=== PATIENT | female | born 1980 | race Caucasian/White ===

== ENCOUNTER 2020-11-16 16:43 | Emergency (ER) | payer OTHER ==
[2020-11-16] MEDS ORDERED: diphenhydrAMINE 50 MG/ML SDV IVPUSH ONE (17:17)
[2020-11-16] MEDS ORDERED: Metoclopramide 10 MG/2 ML SDV IVPUSH ONE (17:17)
[2020-11-16] MEDS ORDERED: Sodium Chloride 0.9% 10 ML Syringe FLUSH PRN (17:17)
[2020-11-16] MEDS ORDERED: Lactated Ringers 1,000 ML IV ONE (17:17)
[2020-11-16] MEDS ORDERED: Ketorolac 30 MG/ML SDV IVPUSH ONE (17:17)
--- NOTE | 2020-11-16 17:22 | EDM.PDOC ---
ED HPI GENERAL MEDICAL PROBLEM - General Chief Complaint: Neuro Symptoms/Deficits Stated Complaint: VERTIGO AND HEAD HURTING Time Seen by Provider: 11/16/20 17:10 Source of Information: Reports: Patient History Limitations: Reports: No Limitations - History of Present Illness INITIAL COMMENTS - FREE TEXT/NARRATIVE: Patient comes emergency department today with complaints of a headache and dizziness. Although the primary complaints is vertigo the patient denies any vertigo type symptoms. She relates that today she has been having waxing and waning episodes that last about 1 minute where her head is lightheaded and dizzy and she has a pounding sensation throughout her head. She gets some nausea with this. She is also photophobic at the same time. She has had no recent falls trauma or head injury. No visual acuity changes. No diplopia. No chest pain or shortness of breath or difficulty breathing. No palpitations weakness dizziness lightheadedness. She has been able to ambulate without difficulty. She has no paresthesias of the upper or lower extremities. No change in the functionality of her upper or lower extremities. These episodes last for about a minute and come and go multiple times throughout the day. She has had no fever or chills. No abdominal pain. She has had some nausea without vomiting. No hematuria dysuria or urinary frequency. No black or tarry stools. No Covid exposure no Covid symptoms. Headache Pain Score (Numeric/FACES): 5 - Related Data Allergies Allergy/AdvReac Type Severity Reaction Status Date / Time ibuprofen Allergy Swollen Verified 11/16/20 17:07 Tongue metoclopramide [From Reglan] Allergy Excitabilit Verified 11/16/20 17:07 y morphine Allergy Rash Verified 11/16/20 17:07 Home Meds: Home Meds Escitalopram [Lexapro] 10 mg PO DAILY 11/16/20 [History] Glycopyrrolate [Robinul] 1 mg PO TID 11/16/20 [History] ED ROS GENERAL - Review of Systems Review Of Systems: Comprehensive ROS is negative, except as noted in HPI. - Physical Exam Exam: See Below Exam Limited By: No Limitations General Appearance: Alert, WD/WN, No Apparent Distress Eye Exam: Bilateral Eye: EOMI, PERRL Ears: Normal External Exam, Normal Canal, Normal TMs Nose: Normal Inspection, Normal Mucosa, No Blood Throat/Mouth: Normal Inspection, Normal Lips Head Exam: Atraumatic, Normocephalic Neck: Normal Inspection, Supple, Non-Tender, Full Range of Motion Respiratory/Chest: No Respiratory Distress, Lungs Clear, Normal Breath Sounds, Chest Non-Tender Cardiovascular: Normal Peripheral Pulses, Regular Rate, Rhythm GI/Abdominal: Normal Bowel Sounds, Soft, Non-Tender (Female) Exam: Deferred Rectal (Female) Exam: Deferred Neuro Exam (Abbreviated): Alert, Oriented, CN II-XII Intact, Normal Cognition, Normal Gait, Normal Reflexes, No Motor/Sensory Deficits, Other (Negative [place]. No pronator drift. Clear articulate speech. Negative neuro exam. NIH 0.) Back Exam: Normal Inspection Extremities: Normal Inspection, Normal Range of Motion, Normal Capillary Refill Psychiatric: Normal Affect, Normal Mood Skin Exam: Warm, Dry, Intact, Normal Color, No Rash Course - Vital Signs Last Recorded V/S: Last Vital Signs Temp 98.1 F 11/16/20 16:50 Pulse 96 11/16/20 16:50 Resp 16 11/16/20 16:50 BP 155/86 H 11/16/20 16:50 Pulse Ox 96 11/16/20 16:50 - Orders/Labs/Meds Orders: Active Orders 24 hr Category Date Time Status Sodium Chloride 0.9% [Saline Flush] Med 11/16/20 17:17 Active 10 ml FLUSH ASDIRECTED PRN Peripheral IV Insertion Adult [OM.PC] Stat Oth 11/16/20 17:17 Ordered Medication Orders Sodium Chloride (Saline Flush) 10 ml FLUSH ASDIRECTED PRN PRN Reason: Keep Vein Open Labs: Laboratory Tests 11/16/20 11/16/20 11/16/20 Range/Units 17:30 17:30 17:30 WBC 8.9 (4.0-10.0) x10^3/uL RBC 4.30 (4.00-5.50) x10^6/uL Hgb 13.6 (12.0-16.0) g/dL Hct 39.4 (33.0-47.0) % MCV 91.6 (78.0-93.0) fL MCH 31.6 (26.0-32.0) pg MCHC 34.5 (32.0-36.0) g/dL RDW Coeff of [place] 12.7 (10.0-15.0) % Plt Count 292 (130-400) x10^3/uL Neut % (Auto) 72.0 (50.0-80.0) % Lymph % (Auto) 19.4 L (25.0-50.0) % [place] % (Auto) 7.2 (2.0-11.0) % Eos % (Auto) 1.1 (0.0-4.0) % Baso % (Auto) 0.3 (0.2-1.2) % Sodium 138 (136-145) mmol/L Potassium 3.8 (3.5-5.1) mmol/L Chloride 102 (98-107) mmol/L Carbon Dioxide 28 (21-32) mmol/L Anion Gap 11.8 (10-20) mmol/L BUN 12 (7-18) mg/dL Creatinine 0.8 (0.55-1.02) mg/dL Est Cr Clr Drug Dosing TNP Estimated GFR (MDRD) > 60 Glucose 97 (74-106) mg/dL Calcium 8.9 (8.5-10.1) mg/dL Corrected Calcium 9.14 (8.5-10.1) mg/dL Total Bilirubin 0.8 (0.2-1.0) mg/dL AST 14 L (15-37) U/L ALT 25 (14-59) U/L Alkaline Phosphatase 67 (46-116) U/L Total Protein 7.7 (6.4-8.2) g/dL Albumin 3.7 (3.4-5.0) g/dL Globulin 4.0 Albumin/Globulin Ratio 0.93 Urine Color Yellow (YELLOW) Urine Appearance Clear (CLEAR) Urine pH 7.0 (5.0-8.0) Ur Specific [place] 1.015 Urine Protein Negative (NEGATIVE) mg/dL Urine Glucose (UA) Negative (NEGATIVE) mg/dL Urine Ketones Negative (NEGATIVE) mg/dL Urine Occult Blood Negative (NEGATIVE) Urine Nitrite Negative (NEGATIVE) Urine Bilirubin Negative (NEGATIVE) Urine Urobilinogen 0.2 (0.2) EU/dL Ur Leukocyte Esterase Negative (NEGATIVE) Meds: Medications Generic Name Dose Route Start Last Admin Trade Name Freq PRN Reason Stop Dose Admin Sodium Chloride 10 ml 11/16/20 17:17 Saline Flush FLUSH ASDIRECTED PRN Keep Vein Open Discontinued Medications Generic Name Dose Route Start Last Admin Trade Name Elise PRN Reason Stop Dose Admin Diphenhydramine HCl 25 mg 11/16/20 17:17 11/16/20 17:51 Benadryl IVPUSH 11/16/20 17:18 25 mg ONETIME ONE Administration Lactated Ringer's 1,000 mls @ 999 mls/hr 11/16/20 17:17 11/16/20 17:52 Ringers, Lactated IV 11/16/20 18:17 999 mls/hr ONETIME ONE Administration Ketorolac Tromethamine 30 mg 11/16/20 17:17 11/16/20 17:52 Toradol IVPUSH 11/16/20 17:18 30 mg ONETIME ONE Administration Metoclopramide HCl 10 mg 11/16/20 17:17 Reglan IVPUSH 11/16/20 17:18 ONETIME ONE Prochlorperazine Edisylate 5 mg 11/16/20 17:46 11/16/20 17:52 Compazine IV 11/16/20 17:47 5 mg ONETIME ONE Administration - Re-Assessments/Exams Free Text/Narrative Re-Assessment/Exam: 11/16/20 17:20 I explained to the patient I do not see any signs of a stroke or concerns for that especially with the waxing and waning symptoms that she is having this is most likely a complex type migraine. No sensation of vertigo or nystagmus. IV of LR 1 L wide open. Benadryl 25 mg IV push. Ketorolac 30 mg IV push. Compazine 5mg IVP allergic to Reglan. 11/16/20 18:20 CBC, CMP and urinalysis is unremarkable. 11/16/20 18:51 After the above therapy the patient is almost completely asymptomatic. She has a little bit of residual headache in the very lower occiput region but the dizziness and the other symptoms have completely resolved. Repeat neurological evaluation is unremarkable. We will discharge her home with instructions for migraine. Anything new or worse she is to recheck. She is understanding this questions are answered Departure - Departure Time of Disposition: 18:51 Disposition: Home, Self-Care 01 Clinical Impression: Migraine Qualifiers: Migraine type: unspecified Status migrainosus presence: without status migrainosus Intractability: not intractable Qualified Code(s): G43.909 - Migr roshan, unspecified, not intractable, without status migrainosus - Discharge Information Instructions: Migraine Headache, [id number] Referrals: Rosa Maria Tuttle MD [Primary Care Provider] - Forms: ED Department Discharge Additional Instructions: Home rest tonight. Decrease stimulation to the brain especially lights sounds and backlit tablets such as a phone or tablet. Lots of fluids. Tylenol as needed for headache. Return to the ED if new or worsening symptoms. Follow up with PCP in the next 4-6 days if not improving sooner if worse. Sepsis Event Note (ED) - Focused Exam Vital Signs: Vital Signs Temp Pulse Resp BP Pulse Ox 11/16/20 16:50 98.1 F 96 16 155/86 H 96 - My Orders Last 24 Hours: My Active Orders 11/16/20 17:17 Sodium Chloride 0.9% [Saline Flush] 10 ml FLUSH ASDIRECTED PRN Peripheral IV Insertion Adult [OM.PC] Stat - Assessment/Plan Last 24 Hours: My Active Orders 11/16/20 17:17 Sodium Chloride 0.9% [Saline Flush] 10 ml FLUSH ASDIRECTED PRN Peripheral IV Insertion Adult [OM.PC] Stat
[2020-11-16] MEDS ORDERED: Prochlorperazine 10 MG/2 ML SDV IV ONE (17:46)
[2020-11-16 18:05] LABS: ANION GAP 11.8 mmol/L (10-20); CHLORIDE,CL 102 mmol/L (98-107); SODIUM,NA 138 mmol/L (136-145)
== END 2020-11-16 19:14 | disposition home or self-care (01) ==
LOC: VM.ED 16:43
DX: G43.909 Migraine, unspecified, not intractable, without status migrainosus (principal); Z88.6 Allergy status to analgesic agent; Z88.5 Allergy status to narcotic agent; Z79.899 Other long term (current) drug therapy; Z88.8 Allergy status to other drugs, medicaments and biological substances
CPT/HCPCS: 36415; 80053; 81003; 85025; 96374; 96375; 99283; 99284-25; J0780; J1200; J1885; J7120